=== PATIENT | male | born 1950 | race Caucasian/White ===

== ENCOUNTER 2017-03-20 08:51 | Emergency (ER) | payer MEDICARE, BC ==
[~2017-03-20] VITALS: Ht 182.9 cm; Wt 78.0 kg
--- NOTE | 2017-03-20 10:01 | NUR ---
Dr. Mcconnell at bedside for MSE.
--- NOTE | 2017-03-20 12:27 | NUR ---
Patient discharged to home in stable conditon. Written and verbal after care instructions given. Patient verbalizes understanding of instructions. Stressed follow up with pmd.
== END 2017-03-20 12:28 | disposition home or self-care (01) ==
LOC: ER 08:51
DX: I80.01 Phlebitis and thrombophlebitis of superficial vessels of right lower extremity (principal)
CPT/HCPCS: A4663

== ENCOUNTER 2017-04-06 13:07 | Emergency (ER) | payer MEDICARE, BC ==
[~2017-04-06] VITALS: Ht 182.9 cm; Wt 77.1 kg
--- NOTE | 2017-04-06 14:33 | NUR ---
Patient discharged to home in stable conditon. Written and verbal after care instructions given, as well as rx. pt advised not to drive while taking medication. Patient verbalizes understanding of instructions.
[2017-04-06 14:35] VITALS: BP 110/75
== END 2017-04-06 14:35 | disposition home or self-care (01) ==
LOC: ER 13:07
DX: M54.5 Low back pain (principal)
CPT/HCPCS: 72100; 99284; A4663